=== PATIENT | female | born 1990 | race Two or more races ===

== ENCOUNTER 2019-12-07 01:20 | Inpatient (IN) | payer SELFPAY ==
[2019-12-07] VITALS (9 sets, daily range): BP systolic 100–125; BP diastolic 54–75
[~2019-12-07] VITALS: Ht 158 cm; Wt 96.0 kg
[2019-12-07] MEDS ORDERED: LACTATED RINGER'S 1,000 ML IV SCH (01:59)
[2019-12-07] MEDS ORDERED: NITROGLYCERIN 0.4 MG SL TAB SL PRN (02:00)
[2019-12-07] MEDS ORDERED: MORPHINE SULF INJ 2 MG/ML SYRINGE 1ML IV PRN (02:00)
[2019-12-07] MEDS ORDERED: LACT. RINGERS/OXYTOCIN 20UNITS 1,000 ML IV SCH (02:32)
[2019-12-07] MEDS ORDERED: WITCH HAZEL-GLYCERIN PAD TOP PRN (02:45)
[2019-12-07] MEDS ORDERED: DERMOPLAST 60ML BOTTLE TOP PRN (02:45)
[2019-12-07] MEDS ORDERED: PHISODERM TOP SOLN 240ML BTL TOP PRN (02:45)
[2019-12-07] MEDS ORDERED: BUTORPHANOL TARTRATE 2 MG/1 ML VIAL IV PRN (02:45)
[2019-12-07] MEDS ORDERED: LIDOCAINE 2%HCL (LOCAL ANESTH.) INJ 20ML MDV ID ONE (02:45)
[2019-12-07] MEDS ORDERED: PENICILLIN G POT 5MIL/D5 50ML 50 ML IV ONE ×2 (02:45)
[2019-12-07 03:15] LABS: Albumin 2.3 g/dL (3.4-5.0); Calcium 8.2 mg/dL (8.5-10.1); Potassium 3.9 mmol/L (3.5-5.1)
[2019-12-07 03:18] LABS: Alcohol, Urine < 3.0 mg/dL (0-5); Amphetamine Screen, Urine NEGATIVE (NEGATIVE); Barbiturate Scree,Urine NEGATIVE (NEGATIVE); Benzodiazephine Screen, Urine NEGATIVE (NEGATIVE); Cannabinoid Screen, Urine NEGATIVE (NEGATIVE); Cocaine Screen, Urine NEGATIVE (NEGATIVE); Opiate Scree,Urine NEGATIVE (NEGATIVE); Phencyclidine Screen, Urine NEGATIVE (NEGATIVE)
[2019-12-07 03:19] LABS: BUN/Creatinine Ratio 12.2; Bilirubin, Total 0.2 mg/dL (0.2-1.0); Total Protein 7.2 g/dL (6.4-8.2); Uric Acid 3.5 mg/dL (2.6-6.0)
[2019-12-07 03:28] LABS: Urine Bacteria FEW /hpf (None Seen); Urine Blood TRACE /uL (Negative); Urine Mucus FEW (None Seen); Urine Specific Gravity 1.027 (1.001-1.035); Urine WBC 1 /hpf (0 - 5)
[2019-12-07 03:29] LABS: Basophils # (auto) 0.1 10 ^3/uL (0-0.2); Basophils % (auto) 1.2 % (0.0-2.0); Eosinophils # (auto) 0 10 ^3/uL (0-0.8); Eosinophils % (auto) 0.3 % (0.0-7.0); Hematocrit 25.2 % (36.0-46.0); Hemoglobin 7.7 g/dL (12.2-16.2); Lymphocytes # (auto) 3.1 10 ^3/uL (0.4-5.4); Lymphocytes % (auto) 26.9 % (10.0-50.0); Mean Corpuscular Hemoglobin 19.2 pg (28.0-32.0); Mean Corpuscular Hgb Conc. 30.5 g/dL (32.0-36.0); Mean Corpuscular Volume 62.8 fL (80.0-100.0); Monocytes # (auto) 0.6 10 ^3/uL (0-1.3); Monocytes % (auto) 5.4 % (0.0-12.0); Neutrophils # (auto) 7.7 10 ^3/uL (1.6-8.6); Neutrophils % (auto) 66.2 % (37.0-80.0); Nucleated Red Blood Cells % 0.1 %; Platelet Count (auto) 288 10^3/uL (140-450); Red Blood Cells 4.01 10^6/uL (4.0-5.20); Red Cell Distribution Width 17.8 % (11.8-14.3); White Blood Cell 11.6 10^3/uL (4.4-10.8)
[2019-12-07 04:19] LABS: INR 0.98 (0.9-1.15); Partial Thromboplastin Time 25.4 sec (23.64-32.05)
[2019-12-07] MEDS ORDERED: METHYLERGONOVINE MALEATE 0.2 MG/ML AMP IM PRN (05:00)
[2019-12-07] MEDS ORDERED: METHYLERGONOVINE MALEATE 0.2 MG/ML AMP IM ONE (05:13)
[2019-12-07] MEDS ORDERED: CARBOPROST TROMETHAMINE 250 MCG/1ML VIAL IM ONE (05:13)
[2019-12-07] MEDS ORDERED: DIPHENOXYLATE W/ATROPINE 2.5 MG TAB PO ONE (06:00)
[2019-12-07] MEDS ORDERED: miSOPROStol 100 mcg TAB PR ONE (06:00)
[2019-12-07] MEDS ORDERED: miSOPROStol 100 mcg TAB SL ONE (06:00)
[2019-12-07] MEDS: CARBOPROST TROMETHAMINE 250 MCG/1ML VIAL IM PRN ×2 (06:03→06:26)
[2019-12-07] MEDS ORDERED: ONDANSETRON HCL 4 MG/2 ML VIAL IV PRN (06:30)
[2019-12-07] MEDS ORDERED: ACETAMINOPHEN 325 MG TAB PO PRN (06:30)
[2019-12-07] MEDS ORDERED: IBUPROFEN 600 MG TAB PO PRN (06:30)
[2019-12-07] MEDS ORDERED: PENICILLIN G POTASSIUM 2,500,000 UNITS in D5W 5% 50 ML IV SCH (06:45)
[2019-12-07] MEDS ORDERED: ceFAZolin 1GM/50ML 50 ML IV ONE (06:57)
[2019-12-07] MEDS: ceFAZolin 1GM/50ML 50 ML IV SCH ×3 (06:59→21:34)
[2019-12-07] MEDS: FERROUS SULFATE 325 MG TAB PO SCH ×2 (12:12→17:45)
[2019-12-07] MEDS ORDERED: ceFAZolin 1GM/50ML 50 ML IV SCH (14:00)
[2019-12-07 14:09] LABS: Basophils # (auto) 0 10 ^3/uL (0-0.2); Eosinophils # (auto) 0 10 ^3/uL (0-0.8); Mean Corpuscular Hgb Conc. 31.6 g/dL (32.0-36.0); Monocytes # (auto) 1.2 10 ^3/uL (0-1.3); Neutrophils # (auto) 12.9 10 ^3/uL (1.6-8.6); Neutrophils % (auto) 75.1 % (37.0-80.0); White Blood Cell 17.2 10^3/uL (4.4-10.8)
[2019-12-07 14:11] LABS: Basophils % (auto) 0.3 % (0.0-2.0); Hematocrit 26.1 % (36.0-46.0); Hemoglobin 8.2 g/dL (12.2-16.2); Lymphocytes % (auto) 17.5 % (10.0-50.0); Mean Corpuscular Hemoglobin 20.4 pg (28.0-32.0); Mean Corpuscular Volume 64.8 fL (80.0-100.0); Monocytes % (auto) 7.1 % (0.0-12.0); Platelet Count (auto) 287 10^3/uL (140-450); Red Blood Cells 4.03 10^6/uL (4.0-5.20); Red Cell Distribution Width 19.6 % (11.8-14.3)
[2019-12-07] MEDS ORDERED: PRENCAP11 PO (16:03)
[2019-12-08 03:00] VITALS: BP 95/54
[2019-12-08 03:09] LABS: Rubella Antibodies, IgG 1.75 index (Immune >0.99)
[2019-12-08 05:06] LABS: RPR Non Reactive (Non Reactive)
[2019-12-08 06:55] VITALS: BP 111/64
[2019-12-08] MEDS: FERROUS SULFATE 325 MG TAB PO SCH ×3 (08:04→17:31)
[2019-12-08 11:30] VITALS: BP 125/76
[2019-12-08 15:30] VITALS: BP 106/68
[2019-12-08 19:00] VITALS: BP 98/68
[2019-12-08 23:00] VITALS: BP 107/55
[2019-12-09 02:50] VITALS: BP 96/68
[2019-12-09 07:25] VITALS: BP 125/88
[2019-12-09] MEDS: FERROUS SULFATE 325 MG TAB PO SCH ×2 (08:00→12:00)
[2019-12-09 11:09] VITALS: BP 117/81
== END 2019-12-09 12:50 | disposition home or self-care (01) | DRG 807 ==
LOC: LDRP 01:20 → OBSVTOIN 01:20 → LDRP 02:46
PROVIDERS: ADMIT Obstetrics & Gynecology; ATTEND Obstetrics & Gynecology
PROC: 10E0XZZ Delivery of Products of Conception, External Approach (ICD-10-PCS; principal; 2019-12-07)
PROC: 0HQ9XZZ Repair Perineum Skin, External Approach (ICD-10-PCS; 2019-12-07)
DX: O34.219 Maternal care for unspecified type scar from previous cesarean delivery (principal); Z37.0 Single live birth; D64.9 Anemia, unspecified; O99.02 Anemia complicating childbirth; O70.0 First degree perineal laceration during delivery; Z3A.38 38 weeks gestation of pregnancy
CPT/HCPCS: 36415; 36430; 59025; 59409; 76805; 80053; 80307; 81001; 81002; 84112; 84550; 85025; 85384; 85610; 85730; 86592; 86762; 86850; 86900; 86901; 86920; 87340; 94760; 96365; 96366; 96372; 96375; G0378; J0690; J2540; J2590; J7060